=== PATIENT | male | born 1950 | race Asian ===

== ENCOUNTER 2018-12-07 06:00 | Day surgery (SDC) | payer MEDICARE, BC ==
[2018-12-07] MEDS ORDERED: PROPOFOL 20 ML ×2 (07:24→08:35)
[2018-12-07] MEDS ORDERED: FENTAnyl 50 MCG/ML VIAL (07:24)
[2018-12-07] MEDS ORDERED: ONDANSETRON 4 MG INJ IV (08:00)
[2018-12-07] MEDS ORDERED: FENTAnyl 50 MCG/ML VIAL IV (08:00)
== END 2018-12-07 09:00 | disposition home or self-care (01) ==
LOC: GIL 06:00
DX: Z12.11 Encounter for screening for malignant neoplasm of colon (principal); K64.8 Other hemorrhoids; K29.60 Other gastritis without bleeding; K21.9 Gastro-esophageal reflux disease without esophagitis; R10.10 Upper abdominal pain, unspecified; Z86.010 Personal history of colon polyps
CPT/HCPCS: 43235; 88305